=== PATIENT | female | born 1955 | race Caucasian/White ===

== ENCOUNTER 2019-07-22 18:23 | Emergency (ER) | payer OTHER ==
[~2019-07-22] VITALS: Ht 160 cm; Wt 54.5 kg
[~2019-07-22 18:23] MED LIST: AZIT500T3 PO; ONDA4TAB8 PO
[2019-07-22 18:28] VITALS: Ht 160 cm; Wt 54.5 kg
[2019-07-22] MEDS ORDERED: SODIUM CHLORIDE 0.9% 1L BAG IV* STA (18:57)
[2019-07-22] MEDS ORDERED: PIPER-TAZO 3.375 GM IV (PMX) 100 ML IVPB STA (18:57)
[2019-07-22] MEDS ORDERED: ONDANSETRON 4 MG INJ IV STA (18:57)
[2019-07-22] MEDS ORDERED: IOHEXOL 300MG/ML 150 ML BTL ONE (20:36)
[2019-07-22] MEDS ORDERED: SOD CHLORIDE 0.9% 100 ML ONE (20:36)
[2019-07-22] MEDS ORDERED: POTASSIUM CHLORIDE (SR) 20 MEQ TAB PO STA (22:14)
[2019-07-22 23:01] VITALS: BP 127/80; PULSE 92; RESP 18
== END 2019-07-22 23:01 | disposition home or self-care (01) ==
LOC: E/R 18:23
DX: K52.9 Noninfective gastroenteritis and colitis, unspecified (principal); I10 Essential (primary) hypertension; E03.9 Hypothyroidism, unspecified; R10.84 Generalized abdominal pain
CPT/HCPCS: 36415; 71045; 74177; 76856; 80053; 81003; 83605; 83690; 84439; 84443; 84484; 85025; 85610; 85730; 87040; 87086; 93005; 96374; 96375; J2405; J2543; J7030; Q9967; Z7502; Z7610